=== PATIENT | male | born 1995 ===

== ENCOUNTER 2018-08-05 16:39 | Emergency (ER) | payer SELFPAY ==
[2018-08-05 16:57] VITALS: BP 120/70
--- NOTE | 2018-08-05 17:54 | UC ---
Head Injury HPI - HPI Summary HPI Summary: WHILE SNOWBOARDING TODAY PATIENT FELL AND STRUCK HIS HEAD ON THE ICE. HE WAS WEARING A HELMET. STATES HE DID NOT LOSE CONSCIOUSNESS AND REMEMBERS GETTING UP AND WALKING DOWN THE HILL AND THEN HAS NO MEMORY FOR ABOUT THE NEXT 20 MINUTES PER HIS FIANCE. HE REMEMBERS WALKING TO THE CAR AND EVERYTHING SINCE THEN. PRESENTLY COMPLAINS OF A MILD HEADACHE BUT DENIES DIZZINESS, NAUSEA, VISUAL DISTURBANCES. - History Of Current Complaint Chief Complaint: UCHeadInjury Stated Complaint: HEAD INJURY,MEMORY LOSS Time Seen by Provider: 08/05/18 16:50 Hx Obtained From: Patient Onset/Duration: Sudden Onset Severity Currently: Mild Severity Initially: Moderate Pain Intensity: 4 Pain Scale Used: 0-10 Numeric Character: Dull Aggravating Factor(s): Nothing Alleviating Factor(s): Nothing Associated Signs And Symptoms: Positive: Memory Loss. Negative: LOC (Time In Secs./Mins/Hrs), LOC Duration Unknown, Seizure, Neck Pain, Nausea, Vomiting - Allergies/Home Medications Allergies/Adverse Reactions: Allergies Allergy/AdvReac Type Severity Reaction Status Date / Time No Known Allergies Allergy Verified 08/05/18 16:57 PMH/Surg Hx/FS Hx/Imm Hx Previously Healthy: Yes - Surgical History Surgery Procedure, Year, and Place: spinal fusion 2007 - Family History Known Family History: Positive: Non-Contributory - Social History Alcohol Use: None Substance Use Type: None Smoking Status (MU): Never Smoked Tobacco Review of Systems All Other Systems Reviewed And Are Negative: Yes Constitutional: Positive: Negative Skin: Positive: Negative Respiratory: Positive: Negative Cardiovascular: Positive: Negative Gastrointestinal: Positive: Negative Neurological: Positive: Headache, Other - TRANSIENT MEMORY LOSS Physical Exam Triage Information Reviewed: Yes Appearance: Well-Appearing, No Pain Distress, Well-Nourished Vital Signs: Initial Vital Signs Temp 99.1 F 08/05/18 16:51 Pulse 100 08/05/18 16:51 Resp 16 08/05/18 16:51 BP 120/70 08/05/18 16:51 Pulse Ox 99 08/05/18 16:51 Vital Signs Reviewed: Yes Eyes: Positive: Conjunctiva Clear, Other: ENT: Positive: Hearing grossly normal, Pharynx normal, TMs normal. Negative: Nasal drainage Neck: Positive: Supple, Nontender, No Lymphadenopathy Respiratory Exam: Normal Cardiovascular Exam: Normal Abdomen Description: Positive: Soft Musculoskeletal: Positive: ROM Intact, No Edema Neurological: Positive: Alert, Muscle Tone Normal, Other: - CN II-XII GROSSLY INTACT BILATERALLY. RAPID ALTERNATING MOVEMENTS INTACT. NEG PRONATOR DRIFT. NEG ROMBERG. 5/5 STRENGTH. HEEL TO COOPER INTACT BILATERALLY. TANDEM GAIT INTACT. FINGER TO NOSE INTACT. Psychological: Positive: Age Appropriate Behavior Skin: Negative: Rashes Diagnostics - Radiology CT HEAD W/O CONTRAST Radiology Interpretation Completed By: Radiologist Summary of Radiographic Findings: UNREMARKABLE Head Injury Course/Dx - Course Course Of Treatment: CT HEAD TODAY UNREMARKABLE. PT LIKELY SUFFERED A MILD CONCUSSION. ADVISED BOTH PHYSICAL AND COGNITIVE REST. NO SPORTS FOR AT LEAST 1 WEEK AND ONLY IF SX FREE. OTC MEDS NEEDED. F/U IF NEEDED. - Differential Dx/Diagnosis Provider Diagnosis: Concussion Discharge - Sign-Out/Discharge Documenting (check all that apply): Patient Departure All imaging exams completed and their final reports reviewed: Yes - Discharge Plan Condition: Stable Disposition: HOME Patient Education Materials: Concussion (ED) Referrals: [facility] [Provider Group] - If Needed Additional Instructions: CT OF YOUR HEAD TODAY WAS UNREMARKABLE. OKAY FOR TYLENOL TONIGHT FOR HEADACHE. STARTING TOMORROW AFTERNOON CAN TAKE IBUPROFEN IF NEEDED. LIMIT SCREEN TIME AND AVOID ACTIVITIES THAT COULD RESULT IN ADDITIONAL HEAD INJURY. NO SPORTS FOR AT LEAST A WEEK. FOLLOW-UP WITH PCP IF SYMPTOMS ARE PERSISTENT AFTER 1 WEEK. GO TO THE ED WITHOUT FAIL IF YOU DEVELOP UNEQUAL PUPILS, VISUAL DISTURBANCE, GAIT INSTABILITY, SPEECH DIFFICULTY, NAUSEA/VOMITING, WORSENING HEADACHE, DIZZINESS, CONFUSION, WEAKNESS, FURTHER MEMORY LOSS OR ANY OTHER CONCERNING SYMPTOMS. - Billing Disposition and Condition Condition: STABLE Disposition: Home
== END 2018-08-05 17:56 | disposition home or self-care (01) ==
LOC: UCEAST 16:39
DX: S06.0X0A Concussion without loss of consciousness, initial encounter (principal); W19.XXXA Unspecified fall, initial encounter; Y93.23 Activity, snow (alpine) (downhill) skiing, snowboarding, sledding, tobogganing and snow tubing; Y92.838 Other recreation area as the place of occurrence of the external cause
CPT/HCPCS: 70450; 99201; G0463